=== PATIENT | male | born 1970 | race Caucasian/White ===

== ENCOUNTER 2025-08-15 22:49 | Emergency (ER) | payer BC, OTHER ==
[~2025-08-15] VITALS: Ht 175.3 cm; Wt 106.3 kg
[2025-08-16 00:38] VITALS: BP 110/80; PULSE 56; RESP 17; TEMP 98.4; O2SAT 95
[2025-08-16] MEDS ORDERED: IBUP-1455 PO (02:00)
[2025-08-16] MEDS ORDERED: AUG875T PO (02:00)
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
--- NOTE | 2025-08-16 03:26 | DVH ---
EXAM: XY L HAND 3V XRAY HISTORY: animal bite COMPARISON: None TECHNIQUE: Three views of the left hand were performed. FINDINGS: No acute fracture or dislocation are identified about the left hand. Degenerative changes in the distal interphalangeal joints. No soft tissue abnormality. IMPRESSION: 1. No fracture or dislocation in the left hand.
== END 2025-08-16 02:07 | disposition home or self-care (01) ==
LOC: ER 22:49
DX: S61.452A Open bite of left hand, initial encounter (principal); Z88.8 Allergy status to other drugs, medicaments and biological substances; W54.0XXA Bitten by dog, initial encounter; Y93.89 Activity, other specified; Y92.89 Other specified places as the place of occurrence of the external cause; Y99.8 Other external cause status
CPT/HCPCS: 73130